=== PATIENT | female | born 1955 ===

== ENCOUNTER 2016-08-22 16:31 | Emergency (ER) | payer OTHER ==
[~2016-08-22] VITALS: Ht 157.5 cm; Wt 56.7 kg
--- NOTE | 2016-08-22 18:07 | ED UPPER/LOWER EXTREMITY COMPL ---
History of Present Illness General Chief Complaint: General Adult Stated Complaint: S/P SURGURY ON RT HAND FEELS IT INFECTED Source: patient Exam Limitations: no limitations Vital Signs & Intake/Output Vital Signs & Intake/Output ED Intake and Output 08/23 0000 08/22 1200 Intake Total Output Total Balance Patient 125 lb Weight Allergies Coded Allergies: No Known Allergies (08/22/16) Reconcile Medications Cephalexin (Keflex) 500 MG CAPSULE 1 CAP PO TID WOUND Tramadol HCl 50 MG TABLET 1 TAB PO BIDP PRN PAIN Triage Note: PT TO ED S/P SURGERY FOR GANGLION CYST TO RIGHT HAND ON 08/02/16, NOW I THINK IT'S INFECTED. PT HAS BACITRACIN AND BANDAIDE TO RIGHT HAND, AREA SLIGHTLY PINK APPEARANCE. Triage Nurses Notes Reviewed? yes HPI: This patient is a 61-year-old female who presented to the emergency department today for evaluation of multiple complaints. The patient reported that in July 2016 she had a right sided ganglion cyst procedure. She reported, "he messed up and did not get all of it out." She reported, "I thought I was only supposed to keep it clean for a couple of days, so I think it's infected now." She reported some pain around the incision site. She reported that the sutures are still in place. She also reported that she had a prior ulnar nerve surgery. She reported that since then she has had some pain. She reported that it has been worsening over the last 7 days and gets up to a 7 out of 10. She reported that she took Advil without any relief of her symptoms. The pain is located primarily in the outside of her elbow on the right. She denied any numbness or tingling in her extremities. No shoulder pain. Movement makes the pain worse. She denied any fevers or chills. (MAIRA SIU,LAMAR) Past History Travel History Traveled to [place] past 21 day No Medical History Any Pertinent Medical History? see below for history Neurological: TIA (1995) MEMORY PROBLEMS 2017 EENT: NONE Cardiovascular: NONE Respiratory: COPD, pneumonia Gastrointestinal: colitis Hepatic: NONE Renal: NONE Musculoskeletal: rheumatoid arthritis, ?LUPUS Psychiatric: anxiety Endocrine: ?HYPOTHYROID Blood Disorders: FOLIC ACID, B12 LOW Cancer(s): NONE Surgical History Surgical History: non-contributory Psychosocial History What is your primary language Hungarian Tobacco Use: Current Daily Use Daily Tobacco Use Amount/Type: => 5 Cigarettes daily ETOH Use: denies use Illicit Drug Use: denies illicit drug use Family History Hx Contributory? No (LAMAR RAO PA-C) Review of Systems Review of Systems Constitutional: Reports: no symptoms. EENTM: Reports: no symptoms. Respiratory: Reports: no symptoms. Cardiovascular: Reports: no symptoms. Gastrointestinal/Abdominal: Reports: no symptoms. Musculoskeletal: Reports: see HPI. Skin: Reports: see HPI. Neurological/Psychological: Reports: no symptoms. All Other Systems: Reviewed and Negative (LAMAR RAO PA-C) Physical Exam Physical Exam General Appearance: well developed/nourished, no apparent distress, alert, awake Comments: Well-developed well-nourished person in no acute distress HEENT: Normal EENT exam, head normocephalic, moist mucous membranes Pupils equally round and reactive to light. Neck: Supple Back: Normal gait Respiratory: No respiratory distress. Speaking in full sentences Right upper extremity: No effusions overlying erythema or ecchymosis of the joint spaces. No bony or muscular deformities noted. Tenderness to palpation over the lateral epicondyle. Capillary refill less than 2 seconds. Range of motion at the elbow limited due to pain. Full range of motion of the wrist and shoulder. Radial brachial pulses 2+ and strong. 3 sutures noted to the dorsal, lateral aspect of the wrist. Mild amount of surrounding erythema with no surrounding edema. Mild tenderness to palpation around the wound site. No drainage from the wound site Neuro: Alert oriented x3, cranial nerves II through XII grossly intact. Skin: No appreciable rash on exposed skin, skin is warm and dry. Psych: Mood and affect is normal (LAMAR RAO PA-C) Progress Differential Diagnosis: arterial insufficiency, cellulitis, septic arthritis, sprain, tendon injury Plan of Care: Orders Procedure Date/time Status BLOOD CULTURE 08/22 1737 Active COMPREHENSIVE METABOLIC PANEL 08/22 1737 Active CBC WITHOUT DIFFERENTIAL 08/22 1737 Active Microbiology 08/22 1805 BLOOD: Blood Culture - RECD 08/22 1737 BLOOD: Blood Culture - ORD Comments: 08/22/2016 6:40:24 PM: The emergency department install technician was able to drop both sets of blood cultures, however, the patient refused further blood work after that. (LAMAR RAO PA-C) Departure Departure Disposition: HOME OR SELF CARE Condition: Stable Clinical Impression Primary Impression: Pain at surgical incision Referrals: CLAIRE NAJERA,FRANSICO FERNANDEZ MD,STEFFANY Cade (PCP/Family) Additional Instructions: Please take the medication for pain as prescribed. Please take the antibiotic as prescribed and for its full duration. Please call the orthopedic physician is information has been provided to in this packet for further evaluation. Use the sling provided to you for extra support of your arm. Return for any worsening symptoms or concerns. Departure Forms: Customer Survey General Discharge Information Prescriptions: Current Visit Scripts Cephalexin (Keflex) 1 CAP PO TID #21 CAP Tramadol HCl 1 TAB PO BIDP PRN PAIN #10 TAB (MAIRA SIU,LAMAR) PA/SNOW FENCE ERECTOR Co-Sign Statement Statement: ED Attending supervision documentation- [] I saw and evaluated the patient. I have also reviewed all the pertinent lab results and diagnostic results. I agree with the findings and the plan of care as documented in the PA's/SNOW FENCE ERECTOR's documentation. [X] I have reviewed the ED Record and agree with the PA's/SNOW FENCE ERECTOR's documentation. [] Additions or exceptions (if any) to the PAs/SNOW FENCE ERECTOR's note and plan are summarized below: [] (QUINCY NAJERA,AZUL)
[2016-08-22] MEDS ORDERED: KEFLEX500 M1 PO (18:41)
[2016-08-22] MEDS ORDERED: TRAMADOL HCL50 M1 PO (18:41)
[2016-08-22 18:55] VITALS: BP 110/60
== END 2016-08-22 18:57 ==
LOC: ERH 16:31
DX: G89.18 Other acute postprocedural pain (principal)
CPT/HCPCS: 87040